=== PATIENT | female | born 1995 | race Caucasian/White ===

== ENCOUNTER 2018-10-21 21:33 | Emergency (ER) | payer OTHER ==
[~2018-10-21] VITALS: Ht 154.9 cm; Wt 82.3 kg
[2018-10-21 21:36] VITALS: Ht 154.9 cm; Wt 82.3 kg
[2018-10-22] MEDS ORDERED: ONDANSETRON (ODT) 4 MG TAB ODT STA (01:15)
[2018-10-22] MEDS ORDERED: IBUPROFEN 600 MG TAB PO ONE (01:30)
[2018-10-22] MEDS ORDERED: ACETAMINOPHEN 325 MG TAB PO ONE (01:30)
[2018-10-22] MEDS ORDERED: ONDA8TAB14 PO (01:41)
[2018-10-22] MEDS ORDERED: IBUP-1542 PO (01:41)
[2018-10-22] MEDS ORDERED: OSEL75CA23 PO (01:42)
--- NOTE | 2018-10-22 01:43 | ERD ---
ER Documentation Chief Complaint Chief Complaint FEVER WITH BODYACHES; X1DAY HPI 22-year-old female presents with fever and cough and body aches starting today. She has no vomiting although has nausea. Denies any urinary complaints, abdominal pain. ROS All systems reviewed and are negative except as per history of present illness. Medications Home Meds Active Scripts Oseltamivir Phosphate* (Tamiflu*) 75 Mg Capsule, 75 MG PO BID for 5 Days, CAP Prov:XAVIER SMALLWOOD MD 10/22/18 Ibuprofen* (Motrin*) 600 Mg Tab, 600 MG PO Q6, #20 TAB Prov:AXVIER SMALLWOOD MD 10/22/18 Ondansetron (Ondansetron Odt) 8 Mg Tab.rapdis, 8 MG PO Q6H PRN for NAUSEA AND/OR VOMITING, #10 TAB Prov:XAVIER SMALLWOOD MD 10/22/18 Allergies Allergies: Coded Allergies: No Known Allergies (Verified Allergy, Mild, 09/14/14) PMhx/Soc History of Surgery: No Anesthesia Reaction: No Hx Neurological Disorder: No Hx Respiratory Disorders: No Hx Cardiac Disorders: No Hx Psychiatric Problems: No Hx Miscellaneous Medical Probl: No Hx Alcohol Use: No Hx Substance Use: No Hx Tobacco Use: No Smoking Status: Never smoker FmHx Family History: No diabetes, No coronary disease, No other Physical Exam Vitals Vital Signs Date Temp Pulse Resp B/P (MAP) Pulse Ox O2 O2 Flow FiO2 Time Delivery Rate 10/21/18 101.2 129 19 150/91 97 21:36 (110) Physical Exam Const: No acute distress Head: Atraumatic Eyes: Normal Conjunctiva ENT: Normal External Ears, Nose and Mouth. TMs and oropharynx normal. Neck: Full range of motion. No meningismus. Resp: Clear to auscultation bilaterally dry cough without rales, wheezing or retractions. Cardio: Regular rate and rhythm, no murmurs Abd: Soft, non tender, non distended. Normal bowel sounds Skin: No petechiae or rashes Back: No midline or flank tenderness Ext: No cyanosis, or edema Neur: Awake and alert Psych: Normal Mood and Affect Results 24 hrs Laboratory Tests Test 10/22/18 01:26 10/22/18 01:31 Bedside Urine pH (LAB) 7.0 Bedside Urine Protein (LAB) Trace Bedside Urine Glucose (UA) Negative Bedside Urine Ketones (LAB) Negative Bedside Urine Blood 2+ Bedside Urine Nitrite (LAB) Negative Bedside Urine Leukocyte Esterase (L Trace POC Beta HCG, Qualitative NEGATIVE Current Medications Medications Dose Sig/Jasmin Start Time Status Last (Trade) Ordered Route PRN Stop Time Admin Dose Reason Admin 650 mg ONCE ONCE 10/22/18 DC 10/22/18 Acetaminophen PO 01:30 01:28 (Tylenol 10/22/18 01:31 Tab) Ibuprofen 600 mg ONCE ONCE 10/22/18 DC 10/22/18 (Motrin) PO 01:30 01:28 10/22/18 01:31 Ondansetron 8 mg ONCE STAT 10/22/18 DC 10/22/18 HCl (Zofran ODT 01:15 01:28 Odt) 10/22/18 01:16 Procedures/MDM Patient presents with a 1 day history of fever, body aches, URI symptoms. Urine is negative except for trace leukocytes although doubt UTI given additional constitutional symptoms. Suspect she has an acute viral URI or influenza with out signs of hypoxemia, rest or distress, signs of pneumonia. We will treat empirically with fever control, Zofran, Tamiflu, primary care follow-up and return precautions. The patient was stable with no new complaints during the ER course. Clinically, there is no current evidence to suggest meningitis, sepsis, acute abdomen, pneumonia, stroke, acute coronary syndrome, pulmonary embolism, aortic dissection or any other emergent condition appearing to require further evaluation or hospitalization. Patient counseled regarding my diagnostic impression and care plan. Prior to discharge all questions answered. Pt agrees with treatment plan and understands strict return precautions. Pt is instructed to follow up with primary care provider within 24-48 hours. Precautionary instructions provided including instructions to return to the ER if not improving or for any worsening or changing symptoms or concerns. Departure Diagnosis: Primary Impression: URI, acute Additional Impression: Fever Fever type: unspecified Qualified Codes: R50.9 - Fever, unspecified Condition: Stable Patient Instructions: Fever Control (Adult), Influenza (Adult), Uri, Viral, No Abx (Adult) Additional Instructions: Likely viral illness or influenza may last 3-5 days. Continue Tylenol every 4 hours as well. Recheck for new or worsening symptoms with primary care doctor. XAVIER SMALLWOOD MD Oct 22, 2018 01:43
[2018-10-22 01:58] VITALS: BP 148/82; PULSE 88; RESP 22
== END 2018-10-22 01:59 | disposition home or self-care (01) ==
LOC: FTE 21:33
DX: J06.9 Acute upper respiratory infection, unspecified (principal)
CPT/HCPCS: 81003; 81025; Z7502; Z7610; 99283